=== PATIENT | male | born 1990 | race Caucasian/White ===

== ENCOUNTER 2017-10-05 13:20 | Emergency (ER) | payer SELFPAY ==
--- NOTE | 2017-10-05 14:04 | EDM.PDOC ---
ED HPI GENERAL MEDICAL PROBLEM - General Chief Complaint: ENT Problem Stated Complaint: FB IN EYE Time Seen by Provider: 10/05/17 13:34 Source of Information: Reports: Patient History Limitations: Reports: No Limitations - History of Present Illness INITIAL COMMENTS - FREE TEXT/NARRATIVE: The patient states that he developed left ice stinging about 2 weeks ago. The next morning, his eye was swollen shut, and there was discharge. This condition resolved after about 2 days, however, the patient has continued to have left ice stinging since. He now reports blurry vision in his left eye since yesterday , 10/04/2017. 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 No eye evaluation prior to today. The patient states that he has been using Visine and eyewash. The patient does not have a PCP. Left Eye Pain Score (Numeric/FACES): 7 - Related Data Allergies Allergy/AdvReac Type Severity Reaction Status Date / Time Penicillins Allergy Hives Verified 10/05/17 13:30 Home Meds: Home Meds Ketorolac [Acular 0.5% Ophth Soln] 1 drop EYELF Q6H PRN #1 bottle 10/05/17 [Rx] Past Medical History Neurological History: Reports: Concussion Psychiatric History: Reports: ADHD Social & Family History - Family History Family Medical History: Noncontributory - Tobacco Use Smoking Status *Q: Current Every Day Smoker Years of Tobacco use: 8 Packs/Tins Daily: 0.5 - Caffeine Use Caffeine Use: Reports: Energy Drinks - Alcohol Use Alcohol Use History: Yes Alcohol Use Frequency: Socially - Recreational Drug Use Recreational Drug Use: No - Living Situation & Occupation Living situation: Reports: , with Spouse, with Family (Stepdaughter, son) Occupation: Employed (Construction) ED ROS GENERAL - Review of Systems Review Of Systems: ROS reveals no pertinent complaints other than HPI. ED EXAM GENERAL W FULL EYE - Physical Exam Exam: See Below Exam Limited By: No Limitations General Appearance: Alert, WD/WN, No Apparent Distress Eye Exam: Left Eye: Corneal Abrasion IOP (R) in mmH IOP (L) in mmH IOP Measure with (Equipment): Tonopen Eyelids: Bilateral: Normal Appearance Conjunctiva & Sclera: Bilateral: Normal Appearance Cornea Exam: Left: Corneal Abrasion (9:00 position) Extraocular Movements: Bilateral: Intact Pupils: Normal Accommodation Pupillary Size: Bilateral: 5 mm Pupillary Reaction: Bilateral: Brisk Anterior Chamber: Bilateral: Normal Appearance Ears: Normal External Exam, Hearing Grossly Normal Nose: Normal Inspection, No Blood Throat/Mouth: Normal Inspection, Normal Lips, Normal Voice, No Airway Compromise Head: Atraumatic, Normocephalic ED EYE w/ Add Procedure - Eye Procedure Alcaine Drops Administered: Yes (Bilaterally) Course - Vital Signs Last Recorded V/S: Last Vital Signs Temp 36.0 C 10/05/17 13:32 Pulse 85 10/05/17 13:32 Resp 16 10/05/17 13:32 BP 137/89 10/05/17 13:32 Pulse Ox 100 10/05/17 13:32 - Re-Assessments/Exams Free Text/Narrative Re-Assessment/Exam: 10/05/17 13:59 Proparacaine instilled into both eyes. Bilateral intraocular pressure measured with a Js-Pen. Fluoroscein dye to the left eye only. Punctate lesion seen just to the left of the pupil at the 9:00 position with a Wood's lamp. Left eye then examined with a slit lamp, confirming a small corneal abrasion that position. No other abnormalities seen. Departure - Departure Time of Disposition: 13:59 Disposition: Home, Self-Care 01 Condition: Good Clinical Impression: Corneal abrasion, left - Discharge Information Prescriptions: Ketorolac [Acular 0.5% Ophth Soln] 1 drop EYELF Q6H PRN #1 bottle PRN Reason: Pain Instructions: Corneal Abrasion, [id number] Referrals: PCP,None [Primary Care Provider] - Forms: ED Department Discharge Additional Instructions: You were seen in the emergency room for left eye pain and blurry vision. On examination, you have a very small corneal abrasion at the 9 o'clock position. A prescription for the eye pain medicine Acular has been sent to the [facility], [address], across the [address] from [facility]. Instill 1 drop into your left eye every 6 hours, as needed for eye discomfort. If you continue to have eye discomfort by 12/08/2017, follow-up with an eye doctor. If any other problems, please do not hesitate to return to the ER.
== END 2017-10-05 14:30 | disposition home or self-care (01) ==
LOC: JD.ED 13:20
DX: S05.02XA Injury of conjunctiva and corneal abrasion without foreign body, left eye, initial encounter (principal); F17.210 Nicotine dependence, cigarettes, uncomplicated; Z88.0 Allergy status to penicillin; X58.XXXA Exposure to other specified factors, initial encounter
CPT/HCPCS: 99283